=== PATIENT | female | born 1955 | race Caucasian/White ===

== ENCOUNTER 2024-01-28 14:42 | Inpatient (IN) | payer OTHER ==
[2024-01-28 14:55] VITALS: BMI 28.1
[2024-01-28] MEDS ORDERED: morphine SULFATE 4 MG/ML VIAL ONE ×3 (15:21→23:27)
[2024-01-28] MEDS: morphine CARPU-JECT 4 MG/1 ML DISP.SYRIN IVPUSH ONE (15:32)
[2024-01-28 15:49] LABS: BASO % 0.3 % (0-2.0); EOS % 0.9 % (0-4.5); HEMATOCRIT 37.1 % (32.4-45.2); HEMOGLOBIN 12.7 GM/dL (10.7-15.3); LYMPH % 14.3 % (8-40); MCH 28.4 pg (25.7-33.7); MCHC 34.3 g/dl (32.0-36.0); MEAN CELL VOLUME 82.9 fl (80-96); MEAN PLT VOLUME 8.2 fl (7.5-11.1); MONO % 4.6 % (3.8-10.2); NEUT % 79.9 % (42.8-82.8); PLATELET COUNT 393 10^3/uL (134-434); RBC 4.47 M/mm3 (3.60-5.2); RDW 14.2 % (11.6-15.6); WHITE BLOOD COUNT 14.2 K/mm3 (4.0-10.0)
[2024-01-28 16:01] LABS: ACTIVATED PTT 28.1 SECONDS (25.2-36.5); INR 0.94 (0.83-1.09); PROTHROMBIN TIME (PATIENT) 10.8 SEC (9.7-13.0)
[2024-01-28] MEDS ORDERED: HYDROmorphone HCL CARPU-JECT 2 MG/1 ML DISP.SYRIN ONE (16:01)
[2024-01-28] MEDS: HYDROmorphone HCl 2 MG/ML VIAL IVPUSH ONE (16:05)
[2024-01-28 16:37] LABS: BLOOD UREA NITROGEN 16.3 mg/dL (7-18); POTASSIUM 3.7 mmol/L (3.5-5.1)
[2024-01-28 16:38] LABS: ALBUMIN 3.8 g/dl (3.4-5.0); CALCIUM 9.3 mg/dL (8.5-10.1); TOT PROT 6.9 g/dl (6.4-8.2)
[2024-01-28] MEDS ORDERED: LORazepam 0.5 MG TABLET PO PRN (17:37)
[2024-01-28] MEDS: KETOROLAC TROMETHAMINE 15 MG/ML VIAL IVPUSH PRN (17:51)
[2024-01-28] MEDS: ONDANSETRON 4 MG/2 ML VIAL IVPUSH PRN (17:52)
[2024-01-28] MEDS: LACTATED RINGERS SOLUTION 1,000 ML/1,000 ML INFUS.BAG IV SCH (18:00)
[2024-01-28] MEDS: morphine SULFATE 4 MG/ML VIAL IVPUSH PRN (20:26)
[2024-01-29] MEDS ORDERED: morphine SULFATE 4 MG/ML VIAL ONE ×2 (03:28→07:58)
[2024-01-29 08:54] LABS: BASO % 0.3 % (0-2.0); EOS % 0.6 % (0-4.5); HEMATOCRIT 29.8 % (32.4-45.2); HEMOGLOBIN 10.5 GM/dL (10.7-15.3); LYMPH % 19.4 % (8-40); MCH 29.5 pg (25.7-33.7); MCHC 35.3 g/dl (32.0-36.0); MEAN CELL VOLUME 83.6 fl (80-96); MEAN PLT VOLUME 8.1 fl (7.5-11.1); MONO % 7.2 % (3.8-10.2); NEUT % 72.5 % (42.8-82.8); PLATELET COUNT 292 10^3/uL (134-434); RBC 3.57 M/mm3 (3.60-5.2); RDW 14.1 % (11.6-15.6); WHITE BLOOD COUNT 9.8 K/mm3 (4.0-10.0)
[2024-01-29 09:06] LABS: PH,URINE 5.5 (5.0-8.0); URINE APPEARANCE CLEAR; URINE BILIRUBIN NEGATIVE (NEGATIVE); URINE COLOR YELLOW; URINE GLUCOSE (UA) NEGATIVE (NEGATIVE); URINE KETONE NEGATIVE (NEGATIVE); URINE LEUK ESTERASE NEGATIVE (NEGATIVE); URINE NITRITE NEGATIVE (NEGATIVE); URINE PROTEIN NEGATIVE (NEGATIVE); URINE UROBILINOGEN 0.2 mg/dL (0.2-1.0)
[2024-01-29 09:10] LABS: POTASSIUM 3.9 mmol/L (3.5-5.1)
[2024-01-29 09:18] LABS: CALCIUM 8.8 mg/dL (8.5-10.1)
[2024-01-29 09:19] LABS: BLOOD UREA NITROGEN 13.2 mg/dL (7-18)
[2024-01-29 09:22] LABS: CREATININE 0.6 mg/dL (0.55-1.3)
[2024-01-29] MEDS ORDERED: FENTANYL CITRATE/PF 50 MCG/ML VIAL IVPUSH PRN (09:25)
[2024-01-29] MEDS ORDERED: PROMETHAZINE HCL 25 MG/1 ML VIAL IVPB PRN (09:25)
[2024-01-29] MEDS ORDERED: ONDANSETRON 4 MG/2 ML VIAL IVPUSH PRN ×2 (09:25→12:33)
[2024-01-29] MEDS ORDERED: LACTATED RINGERS SOLUTION 1,000 ML IV SCH (09:30)
[2024-01-29] MEDS ORDERED: MIDAZOLAM HCL 2 MG/2 ML SINGLE DOSE VIAL ONE (09:36)
[2024-01-29] MEDS ORDERED: SODIUM CHLORIDE 0.9% P/F 10 ML VIAL IJ ONE (09:38)
[2024-01-29] MEDS ORDERED: ceFAZolin SODIUM 1 GM VIAL ONE (09:38)
[2024-01-29] MEDS ORDERED: BUPIVACAINE HCL/PF 0.5% (5MG/ML) 10 ML VIAL ONE (09:45)
[2024-01-29] MEDS: ceFAZolin SODIUM 1 GM VIAL IVPB ONE (09:56)
[2024-01-29] MEDS ORDERED: LIDOCAINE HCL/PF 2% SDV 5ML VIAL ONE (10:22)
[2024-01-29] MEDS ORDERED: PROPOFOL 20 ML ONE (10:22)
[2024-01-29] MEDS ORDERED: TRANEXAMIC ACID 1000 MG/10 ML VIAL ONE (10:55)
[2024-01-29] MEDS ORDERED: KETOROLAC TROMETHAMINE 30 MG/1 ML VIAL ONE (11:34)
[2024-01-29] MEDS ORDERED: ACETAMINOPHEN INJECTION 100 ML IVPB ONE (11:36)
[2024-01-29] MEDS: SODIUM CHLORIDE 1,000 ML IV SCH (16:25)
[2024-01-29] MEDS: DOCUSATE SODIUM 100 MG CAPSULE (FP) PO SCH (16:25)
[2024-01-29] MEDS: morphine SULFATE 4 MG/ML VIAL IVPUSH PRN (17:13)
[2024-01-30] MEDS: CEFAZOLIN 1 GM in DEXTROSE 5%-WATER - 50 ML IVPB SCH (02:44)
[2024-01-30] MEDS: ACETAMINOPHEN 1000 MG/100 ML BAG IVPB ONE (05:58)
[2024-01-30] MEDS: LORazepam 0.5 MG TABLET PO PRN (06:34)
[2024-01-30] MEDS: INSULIN ASPART SLIDING SCALE (NOVOLOG) 1 VIAL SQ SCH (08:05)
[2024-01-30 08:57] LABS: BASO % 0.2 % (0-2.0); EOS % 0.3 % (0-4.5); HEMATOCRIT 23.6 % (32.4-45.2); HEMOGLOBIN 8.3 GM/dL (10.7-15.3); MCH 28.9 pg (25.7-33.7); MCHC 35.2 g/dl (32.0-36.0); MEAN CELL VOLUME 82.2 fl (80-96); MEAN PLT VOLUME 8.3 fl (7.5-11.1); MONO % 7.3 % (3.8-10.2); NEUT % 78.2 % (42.8-82.8); PLATELET COUNT 252 10^3/uL (134-434); RBC 2.87 M/mm3 (3.60-5.2); RDW 14.1 % (11.6-15.6); WHITE BLOOD COUNT 9.6 K/mm3 (4.0-10.0)
[2024-01-30 09:24] LABS: POTASSIUM 3.7 mmol/L (3.5-5.1)
[2024-01-30 09:36] LABS: BLOOD UREA NITROGEN 10.6 mg/dL (7-18); CALCIUM 8.1 mg/dL (8.5-10.1)
[2024-01-30 09:40] LABS: CREATININE 0.6 mg/dL (0.55-1.3)
[2024-01-30] MEDS: ENOXAPARIN NA (PORCINE) 40 MG/0.4 ML DISP.SYRIN SQ SCH (10:01)
[2024-01-30] MEDS: CHOLECALCIFEROL (VIT D3) 1,000 UNIT (25 MCG) TABLET PO SCH (10:04)
[2024-01-30 13:59] LABS: URINE APPEARANCE CLEAR; URINE BILIRUBIN NEGATIVE (NEGATIVE); URINE COLOR YELLOW; URINE GLUCOSE (UA) TRACE (NEGATIVE); URINE KETONE NEGATIVE (NEGATIVE); URINE LEUK ESTERASE NEGATIVE (NEGATIVE); URINE NITRITE NEGATIVE (NEGATIVE); URINE PROTEIN NEGATIVE (NEGATIVE); URINE UROBILINOGEN 0.2 mg/dL (0.2-1.0)
[2024-01-30 14:00] LABS: EPI CELLS 1.3 /uL (0-25.1); URINE RBC 7.2 /uL (0-23.9); URINE WBC 5.3 /uL (0-25.8)
[2024-01-30 14:01] LABS: URINE BACTERIA 7.5 /uL (0-1359)
[2024-01-31 08:47] LABS: BASO % 0.5 % (0-2.0); EOS % 0.4 % (0-4.5); HEMATOCRIT 24.3 % (32.4-45.2); HEMOGLOBIN 8.6 GM/dL (10.7-15.3); MCHC 35.4 g/dl (32.0-36.0); MEAN CELL VOLUME 81.8 fl (80-96); MEAN PLT VOLUME 8.4 fl (7.5-11.1); MONO % 6.3 % (3.8-10.2); NEUT % 79.8 % (42.8-82.8); PLATELET COUNT 281 10^3/uL (134-434); RBC 2.98 M/mm3 (3.60-5.2); RDW 14.1 % (11.6-15.6); WHITE BLOOD COUNT 10.7 K/mm3 (4.0-10.0)
[2024-01-31 09:04] LABS: POTASSIUM 3.6 mmol/L (3.5-5.1)
[2024-01-31 09:07] LABS: CALCIUM 8.3 mg/dL (8.5-10.1)
[2024-01-31 09:08] LABS: ALBUMIN 2.9 g/dl (3.4-5.0); BLOOD UREA NITROGEN 10.4 mg/dL (7-18)
[2024-01-31 09:11] LABS: CREATININE 0.6 mg/dL (0.55-1.3)
[2024-01-31 09:13] LABS: BILIRUBIN,TOTAL 1.4 mg/dL (0.2-1)
[2024-01-31 09:18] LABS: TOT PROT 5.7 g/dl (6.4-8.2)
[2024-01-31] MEDS: KETOROLAC TROMETHAMINE 15 MG/ML VIAL IVPUSH SCH (10:03)
[2024-01-31] MEDS: ACETAMINOPHEN 1000 MG/100 ML BAG IVPB ONE (14:51)
[2024-01-31] MEDS: ACETAMINOPHEN 1000 MG/100 ML BAG IVPB SCH (21:55)
[2024-02-01 10:14] LABS: HEMATOCRIT 23.2 % (32.4-45.2); HEMOGLOBIN 8.2 GM/dL (10.7-15.3); MCH 29.3 pg (25.7-33.7); MCHC 35.4 g/dl (32.0-36.0); MEAN CELL VOLUME 82.8 fl (80-96); MEAN PLT VOLUME 8.4 fl (7.5-11.1); PLATELET COUNT 299 10^3/uL (134-434); RBC 2.81 M/mm3 (3.60-5.2); RDW 14.1 % (11.6-15.6); WHITE BLOOD COUNT 9.6 K/mm3 (4.0-10.0)
[2024-02-01 10:32] LABS: POTASSIUM 3.5 mmol/L (3.5-5.1)
[2024-02-01 10:34] LABS: ALBUMIN 2.8 g/dl (3.4-5.0); CALCIUM 8.5 mg/dL (8.5-10.1)
[2024-02-01 10:35] LABS: BLOOD UREA NITROGEN 13.8 mg/dL (7-18); MAGNESIUM 2.2 mg/dL (1.8-2.4)
[2024-02-01 10:38] LABS: CREATININE 0.6 mg/dL (0.55-1.3); PHOSPHOROUS 2.7 mg/dL (2.5-4.9)
[2024-02-01 10:39] LABS: BILIRUBIN,TOTAL 1.4 mg/dL (0.2-1); TOT PROT 5.8 g/dl (6.4-8.2)
[2024-02-01] MEDS: oxyCODONE HCL 5 MG TABLET PO PRN (15:31)
[2024-02-01] MEDS: LORazepam 0.5 MG TABLET PO PRN (15:48)
[2024-02-02 12:18] LABS: HEMOGLOBIN 7.7 GM/dL (10.7-15.3); MCHC 34.9 g/dl (32.0-36.0); MEAN PLT VOLUME 7.9 fl (7.5-11.1); PLATELET COUNT 338 10^3/uL (134-434); RBC 2.66 M/mm3 (3.60-5.2); RDW 14.3 % (11.6-15.6); WHITE BLOOD COUNT 7.3 K/mm3 (4.0-10.0)
[2024-02-02 12:38] LABS: POTASSIUM 3.2 mmol/L (3.5-5.1)
[2024-02-02 12:41] LABS: ALBUMIN 2.6 g/dl (3.4-5.0); CALCIUM 8.7 mg/dL (8.5-10.1)
[2024-02-02 12:42] LABS: BLOOD UREA NITROGEN 12.2 mg/dL (7-18); MAGNESIUM 2.1 mg/dL (1.8-2.4)
[2024-02-02 12:45] LABS: CREATININE 0.7 mg/dL (0.55-1.3); PHOSPHOROUS 2.8 mg/dL (2.5-4.9)
[2024-02-02 12:46] LABS: BILIRUBIN,TOTAL 1.1 mg/dL (0.2-1); TOT PROT 5.6 g/dl (6.4-8.2)
[2024-02-02] MEDS: POTASSIUM CHLORIDE TABS 20 MEQ TABLET.ER (FP) PO ONE (17:54)
[2024-02-02] MEDS ORDERED: IRON SUCROSE INJECTION 100 MG in SODIUM CHLORIDE 95 ML IVPB ONE (19:38)
[2024-02-03] MEDS ORDERED: ACETAMINOPHEN 1000 MG/100 ML BAG IVPB ONE (01:19)
[2024-02-03] MEDS ORDERED: ACETAMINOPHEN 1000 MG/100 ML BAG IVPB PRN (02:22)
[2024-02-03] MEDS: oxyCODONE HCL 5 MG TABLET PO PRN (03:10)
[2024-02-03] MEDS: ACETAMINOPHEN 1000 MG/100 ML BAG IVPB SCH (04:49)
[2024-02-03 09:19] LABS: BASO % 0.2 % (0-2.0); EOS % 2.3 % (0-4.5); HEMATOCRIT 23.9 % (32.4-45.2); HEMOGLOBIN 8.1 GM/dL (10.7-15.3); LYMPH % 16.7 % (8-40); MCH 28.5 pg (25.7-33.7); MCHC 33.7 g/dl (32.0-36.0); MEAN CELL VOLUME 84.3 fl (80-96); MEAN PLT VOLUME 7.7 fl (7.5-11.1); MONO % 6.2 % (3.8-10.2); NEUT % 74.6 % (42.8-82.8); PLATELET COUNT 398 10^3/uL (134-434); RBC 2.83 M/mm3 (3.60-5.2); RDW 14.6 % (11.6-15.6); WHITE BLOOD COUNT 9.2 K/mm3 (4.0-10.0)
[2024-02-03 09:34] LABS: POTASSIUM 3.8 mmol/L (3.5-5.1)
[2024-02-03 09:44] LABS: ALBUMIN 2.8 g/dl (3.4-5.0); BLOOD UREA NITROGEN 10.3 mg/dL (7-18); CALCIUM 8.8 mg/dL (8.5-10.1); MAGNESIUM 2.2 mg/dL (1.8-2.4)
[2024-02-03 09:47] LABS: CREATININE 0.6 mg/dL (0.55-1.3); PHOSPHOROUS 3.1 mg/dL (2.5-4.9)
[2024-02-03 09:48] LABS: BILIRUBIN,TOTAL 1.4 mg/dL (0.2-1)
[2024-02-03] MEDS: IRON SUCROSE INJECTION 100 MG in SODIUM CHLORIDE 95 ML IVPB ONE (10:57)
[2024-02-03] MEDS ORDERED: HYDROCORTISONE 1% TOPICAL CREAM 30 GM TUBE TP PRN (18:39)
[2024-02-04 12:21] LABS: HEMATOCRIT 26.4 % (32.4-45.2); HEMOGLOBIN 8.9 GM/dL (10.7-15.3); MCH 28.7 pg (25.7-33.7); MCHC 33.7 g/dl (32.0-36.0); MEAN CELL VOLUME 85.2 fl (80-96); MEAN PLT VOLUME 7.7 fl (7.5-11.1); PLATELET COUNT 486 10^3/uL (134-434); RDW 14.8 % (11.6-15.6); WHITE BLOOD COUNT 13.5 K/mm3 (4.0-10.0)
[2024-02-04 12:40] LABS: POTASSIUM 3.8 mmol/L (3.5-5.1)
[2024-02-04 12:46] LABS: ALBUMIN 2.8 g/dl (3.4-5.0); BLOOD UREA NITROGEN 12.2 mg/dL (7-18); CALCIUM 8.8 mg/dL (8.5-10.1); MAGNESIUM 2.2 mg/dL (1.8-2.4)
[2024-02-04 12:50] LABS: CREATININE 0.7 mg/dL (0.55-1.3); PHOSPHOROUS 3.5 mg/dL (2.5-4.9)
[2024-02-04 12:51] LABS: BILIRUBIN,TOTAL 1.4 mg/dL (0.2-1)
[2024-02-04] MEDS ORDERED: HYDROCORTISONE 1% TOPICAL CREAM 30 GM TUBE TP PRN (15:09)
[2024-02-04] MEDS ORDERED: NALOXONE HCL 0.4 MG/ML VIAL IVPUSH PRN (17:06)
[2024-02-04] MEDS: ACETAMINOPHEN 500 MG TABLET (FP) PO SCH (17:56)
[2024-02-04] MEDS: IRON SUCROSE INJECTION 100 MG in SODIUM CHLORIDE 95 ML IVPB ONE (18:44)
[2024-02-04] MEDS: metFORMIN HCL 500 MG TABLET (FP) PO SCH (20:04)
[2024-02-04] MEDS: MINERAL OIL/PET HY-PHL TOPICAL OINTMENT 454 GM JAR TP SCH (21:19)
[2024-02-05 10:18] LABS: HEMATOCRIT 27.4 % (32.4-45.2); HEMOGLOBIN 9.4 GM/dL (10.7-15.3); MCH 29.4 pg (25.7-33.7); MCHC 34.2 g/dl (32.0-36.0); MEAN CELL VOLUME 85.9 fl (80-96); MEAN PLT VOLUME 7.8 fl (7.5-11.1); PLATELET COUNT 529 10^3/uL (134-434); RBC 3.18 M/mm3 (3.60-5.2); WHITE BLOOD COUNT 12.4 K/mm3 (4.0-10.0)
[2024-02-05 10:19] LABS: POTASSIUM 3.7 mmol/L (3.5-5.1)
[2024-02-05 10:22] LABS: ALBUMIN 2.8 g/dl (3.4-5.0); BLOOD UREA NITROGEN 13.4 mg/dL (7-18); CALCIUM 8.9 mg/dL (8.5-10.1); MAGNESIUM 2.3 mg/dL (1.8-2.4)
[2024-02-05] MEDS: POLYETHYLENE GLYCOL (HEALTHYLAX) 3350 17 GM PACKET PO SCH (10:24)
[2024-02-05 10:25] LABS: CREATININE 0.7 mg/dL (0.55-1.3); PHOSPHOROUS 3.3 mg/dL (2.5-4.9)
[2024-02-05] MEDS: ENOXAPARIN NA (PORCINE) 40 MG/0.4 ML DISP.SYRIN SQ SCH (10:26)
[2024-02-05 10:27] LABS: BILIRUBIN,TOTAL 1.5 mg/dL (0.2-1); TOT PROT 6.1 g/dl (6.4-8.2)
[2024-02-05] MEDS: LIDOCAINE 4% PATCH TP SCH (16:24)
[2024-02-05] MEDS ORDERED: LIDOCAINE PATCH REMOVAL MC SCH (22:00)
[2024-02-06 08:55] LABS: HEMATOCRIT 25.8 % (32.4-45.2); HEMOGLOBIN 8.7 GM/dL (10.7-15.3); MCH 29.3 pg (25.7-33.7); MCHC 33.7 g/dl (32.0-36.0); MEAN CELL VOLUME 86.9 fl (80-96); MEAN PLT VOLUME 7.9 fl (7.5-11.1); PLATELET COUNT 556 10^3/uL (134-434); RBC 2.97 M/mm3 (3.60-5.2); RDW 15.2 % (11.6-15.6); WHITE BLOOD COUNT 12.6 K/mm3 (4.0-10.0)
[2024-02-06 09:18] LABS: CALCIUM 8.7 mg/dL (8.5-10.1)
[2024-02-06 09:19] LABS: ALBUMIN 2.8 g/dl (3.4-5.0); BLOOD UREA NITROGEN 11.4 mg/dL (7-18)
[2024-02-06 09:22] LABS: CREATININE 0.7 mg/dL (0.55-1.3)
[2024-02-06 09:24] LABS: BILIRUBIN,TOTAL 1.6 mg/dL (0.2-1); TOT PROT 6.1 g/dl (6.4-8.2)
[2024-02-06 14:46] LABS: BILIRUBIN,DIRECT 0.4 mg/dL (0.0-0.2)
[2024-02-06 16:14] LABS: WHITE BLOOD COUNT 15.8 K/mm3 (4.0-10.0)
[2024-02-06 16:15] LABS: BASO % 0.4 % (0-2.0); EOS % 1.3 % (0-4.5); HEMATOCRIT 26.6 % (32.4-45.2); LYMPH % 11.6 % (8-40); MCH 29.4 pg (25.7-33.7); MCHC 33.9 g/dl (32.0-36.0); MEAN CELL VOLUME 86.8 fl (80-96); MEAN PLT VOLUME 7.9 fl (7.5-11.1); MONO % 5.6 % (3.8-10.2); NEUT % 81.1 % (42.8-82.8); PLATELET COUNT 593 10^3/uL (134-434); RBC 3.06 M/mm3 (3.60-5.2); RDW 15.5 % (11.6-15.6); RETICULOCYTES 9.69 % (0.5-1.5)
[2024-02-06] MEDS: FUROSEMIDE 20 MG TABLET (FP) PO ONE (17:32)
[2024-02-06 20:00] LABS: ANISOCYTOSIS 2+; MACROCYTOSIS 1+
[2024-02-07 10:02] LABS: BASO % 0.3 % (0-2.0); EOS % 1.3 % (0-4.5); HEMOGLOBIN 8.7 GM/dL (10.7-15.3); LYMPH % 13.7 % (8-40); MCH 29.4 pg (25.7-33.7); MCHC 34.7 g/dl (32.0-36.0); MEAN CELL VOLUME 84.8 fl (80-96); MEAN PLT VOLUME 7.5 fl (7.5-11.1); MONO % 5.7 % (3.8-10.2); PLATELET COUNT 565 10^3/uL (134-434); RBC 2.95 M/mm3 (3.60-5.2); RDW 15.6 % (11.6-15.6); WHITE BLOOD COUNT 11.7 K/mm3 (4.0-10.0)
[2024-02-07] MEDS: AMOX TR/POT CLAV 875MG/125MG TABLETS (FP) PO SCH (10:07)
[2024-02-07 10:24] LABS: POTASSIUM 3.9 mmol/L (3.5-5.1)
[2024-02-07 10:32] LABS: ALBUMIN 2.7 g/dl (3.4-5.0); BLOOD UREA NITROGEN 12.3 mg/dL (7-18); CALCIUM 8.8 mg/dL (8.5-10.1)
[2024-02-07 10:35] LABS: CREATININE 0.6 mg/dL (0.55-1.3)
[2024-02-07 10:37] LABS: BILIRUBIN,TOTAL 1.4 mg/dL (0.2-1); TOT PROT 5.9 g/dl (6.4-8.2)
[2024-02-07] MEDS: MAG HYDROX/AL HYDROX/SIMETH 30 ML UNIT-DOSE CUP PO ONE (22:58)
[2024-02-08] MEDS: oxyCODONE HCL 5 MG TABLET PO PRN (11:55)
[2024-02-09 09:41] LABS: HEMATOCRIT 25.9 % (32.4-45.2); HEMOGLOBIN 8.8 GM/dL (10.7-15.3); MCH 29.2 pg (25.7-33.7); MCHC 33.9 g/dl (32.0-36.0); MEAN CELL VOLUME 86.3 fl (80-96); MEAN PLT VOLUME 7.3 fl (7.5-11.1); PLATELET COUNT 653 10^3/uL (134-434); RDW 16.1 % (11.6-15.6); WHITE BLOOD COUNT 11.3 K/mm3 (4.0-10.0)
[2024-02-09 09:59] LABS: POTASSIUM 3.5 mmol/L (3.5-5.1)
[2024-02-09 10:19] LABS: ALBUMIN 2.8 g/dl (3.4-5.0); CALCIUM 8.8 mg/dL (8.5-10.1)
[2024-02-09 10:20] LABS: BLOOD UREA NITROGEN 8.9 mg/dL (7-18)
[2024-02-09 10:22] LABS: CREATININE 0.6 mg/dL (0.55-1.3)
[2024-02-09 10:23] LABS: PHOSPHOROUS 3.3 mg/dL (2.5-4.9); TOT PROT 6.1 g/dl (6.4-8.2)
[2024-02-10 08:36] VITALS: RESP 20
[2024-02-10 18:24] VITALS: BP 134/75; PULSE 88; TEMP 98.1
== END 2024-02-10 20:12 | DRG 481 ==
LOC: JER 14:42 → JERBED 17:12 → J6S 01-29 15:46
PROVIDERS: ADMIT Internal Medicine; ATTEND Internal Medicine
PROC: 0QS636Z Reposition Right Upper Femur with Intramedullary Internal Fixation Device, Percutaneous Approach (ICD-10-PCS; principal; 2024-01-29 10:30)
DX: S72.141A Displaced intertrochanteric fracture of right femur, initial encounter for closed fracture (principal); D62 Acute posthemorrhagic anemia; F13.20 Sedative, hypnotic or anxiolytic dependence, uncomplicated; E11.9 Type 2 diabetes mellitus without complications; F41.9 Anxiety disorder, unspecified; T21.25XA Burn of second degree of buttock, initial encounter; X08.8XXA Exposure to other specified smoke, fire and flames, initial encounter; Y93.9 Activity, unspecified; Y92.89 Other specified places as the place of occurrence of the external cause; Y99.9 Unspecified external cause status; R50.82 Postprocedural fever; R33.9 Retention of urine, unspecified; D75.839 Thrombocytosis, unspecified
CPT/HCPCS: 0241U-QW; 36415; 71045-TC-FY; 72170-TC-FY; 73502-TC-RT-FY; 76705-TC; 80048; 80053; 81003; 82248; 82962; 83010; 83735; 84100; 85025; 85027; 85045; 85610; 85730; 86850; 86900; 86901; 87086; 93005; 93010; 93971-TC; 94010; 94760; 97116-GP; 99285-25; C1713; J0131; J1756